=== PATIENT | female | born 1990 | race Two or more races ===

== ENCOUNTER 2022-12-20 16:39 | Emergency (ER) | payer MEDICAID, OTHER ==
[~2022-12-20] VITALS: Ht 154.9 cm; Wt 49.1 kg
[2022-12-20 19:16] VITALS: BP 106/77
[2022-12-20] MEDS ORDERED: GABA100C9 PO (20:28)
[2022-12-20] MEDS ORDERED: VALA1TAB PO (20:28)
== END 2022-12-20 20:56 | disposition home or self-care (01) ==
LOC: ER 16:39
DX: B02.9 Zoster without complications (principal)

== ENCOUNTER 2024-09-10 20:39 | Inpatient (IN) | payer MEDICAID, OTHER ==
[~2024-09-10] VITALS: Ht 154.9 cm; Wt 53.6 kg
[~2024-09-10 20:39] MED LIST: GABA-1308 PO; VALA1TAB PO
[2024-09-10 21:04] LABS: Basophils # (auto) 0 10 ^3/uL (0-0.2); Basophils % (auto) 0.3 % (0.0-2.0); Eosinophils # (auto) 0 10 ^3/uL (0-0.8); Eosinophils % (auto) 0.2 % (0.0-7.0); Hematocrit 40.1 % (36.0-46.0); Hemoglobin 13.5 g/dL (12.2-16.2); Lymphocytes # (auto) 1.2 10 ^3/uL (0.4-5.4); Mean Corpuscular Hemoglobin 29.2 pg (28.0-32.0); Mean Corpuscular Hgb Conc. 33.6 g/dL (32.0-36.0); Mean Corpuscular Volume 86.9 fL (80.0-100.0); Monocytes # (auto) 1.2 10 ^3/uL (0-1.3); Monocytes % (auto) 8.1 % (0.0-12.0); Neutrophils # (auto) 12.3 10 ^3/uL (1.6-8.6); Neutrophils % (auto) 83.4 % (37.0-80.0); Platelet Count (auto) 277 10^3/uL (140-450); Red Blood Cells 4.62 10^6/uL (4.0-5.20); Red Cell Distribution Width 13.7 % (11.8-14.3); White Blood Cell 14.7 10^3/uL (4.4-10.8)
[2024-09-10 21:21] LABS: Alanine Aminotransferase 289 U/L (7-40); Alkaline Phosphatase 111 U/L (46-116); Anion Gap 5 (5-15); Aspartate Aminotransferase 626 U/L (13-40); BUN/Creatinine Ratio 9.8 (10.0-20.0); Blood Urea Nitrogen 6 mg/dL (9-23); Calcium 10.4 mg/dL (8.7-10.4); Carbon Dioxide 27 mmol/L (20-31); Chloride 105 mmol/L (98-107); Glucose 118 mg/dL (74-106); Potassium 3.4 mmol/L (3.5-5.1); Sodium 137 mmol/L (136-145)
[2024-09-10 21:22] LABS: Albumin 5.3 g/dL (3.2-4.8); Bilirubin, Total 1.2 mg/dL (0.2-1.0); Total Protein 8.1 g/dL (5.7-8.2)
[2024-09-10 21:30] LABS: INR 1.06 (0.9-1.15); Partial Thromboplastin Time 25.6 SEC (24.5-34.5); Prothrombin Time 11.2 sec (9.3-11.8)
[2024-09-10 22:33] VITALS: PULSE 72; RESP 13; O2SAT 100
[2024-09-10] MEDS: MORPHINE SULFATE 4 MG/ML SYR/VIAL IV ONE (23:24)
[2024-09-10] MEDS: ONDANSETRON HCL 4 MG/2 ML VIAL IV ONE (23:26)
[2024-09-10] MEDS: cefTRIAXone 1GM/50ML D5W 50 ML IV ONE (23:27)
[2024-09-10] MEDS: SODIUM CHLORIDE 0.9% 1,000 ML IV ONE (23:27)
[2024-09-11 00:16] LABS: Urine Bacteria FEW /hpf (None Seen); Urine Blood TRACE /uL (Negative); Urine Clarity Clear (Clear); Urine Color Yellow (Yellow); Urine Protein, UAD Negative (Negative); Urine Specific Gravity 1.007 (1.001-1.035); Urine Urobilinogen 3 mg/dL (Negative); Urine WBC 4 /hpf (0 - 5); Urine pH 7.5 (5.0-9.0)
[2024-09-11] MEDS: metroNIDAZOLE 500MG/100ML 100 ML IV ONE (00:58)
[2024-09-11] MEDS ORDERED: ACETAMINOPHEN 325 MG TAB PO PRN (01:30)
[2024-09-11] MEDS ORDERED: MORPHINE SULFATE INJ 2 MG/ml SYRG IV PRN ×2 (01:30→05:15)
[2024-09-11 02:24] LABS: Triglycerides 89 mg/dL (< 150)
[2024-09-11 02:25] LABS: LDL Cholesterol 79 mg/dL (< 100)
[2024-09-11 02:26] LABS: Cholesterol 149 mg/dL (< 200); HDL Cholesterol 59 mg/dL (40-59)
[2024-09-11 02:43] LABS: Amphetamine Screen, Urine Neg (NEGATIVE); Barbiturate Scree,Urine Neg (NEGATIVE); Benzodiazephine Screen, Urine Neg (NEGATIVE); Cannabinoid Screen, Urine Pos (NEGATIVE); Cocaine Screen, Urine Neg (NEGATIVE); Opiate Scree,Urine Neg (NEGATIVE); Phencyclidine Screen, Urine Neg (NEGATIVE)
[2024-09-11] MEDS: SODIUM CHLORIDE 0.9% 1,000 ML IV SCH (02:59)
[2024-09-11] MEDS ORDERED: NITROGLYCERIN 0.4 MG SL TAB SL PRN (05:15)
[2024-09-11 07:09] LABS: Alanine Aminotransferase 323 U/L (7-40); Albumin 3.7 g/dL (3.2-4.8); Alkaline Phosphatase 91 U/L (46-116); Anion Gap 4 (5-15); Aspartate Aminotransferase 467 U/L (13-40); Calcium 8.2 mg/dL (8.7-10.4); Carbon Dioxide 23 mmol/L (20-31); Chloride 113 mmol/L (98-107); Glucose 84 mg/dL (74-106); Potassium 3.8 mmol/L (3.5-5.1); Sodium 140 mmol/L (136-145)
[2024-09-11 07:10] LABS: Bilirubin, Total 0.6 mg/dL (0.2-1.0); Total Protein 5.4 g/dL (5.7-8.2)
[2024-09-11 07:26] LABS: BUN/Creatinine Ratio 11.4 (10.0-20.0); Blood Urea Nitrogen < 5 mg/dL (9-23)
[2024-09-11 08:00] VITALS: PULSE 79; RESP 13; O2SAT 100
[2024-09-11] MEDS: ONDANSETRON HCL 4 MG/2 ML VIAL IV PRN (10:55)
[2024-09-11] MEDS: PANTOPRAZOLE 40 MG/10 ML VIAL INJ IV SCH (10:55)
[2024-09-11 11:08] VITALS: PULSE 88; RESP 15; O2SAT 100
[2024-09-11 11:12] VITALS: BP 114/72; PULSE 88; RESP 15; TEMP 97.6; O2SAT 100
[2024-09-11 20:00] VITALS: PULSE 72; PULSE 77; RESP 18; O2SAT 99
[2024-09-11 22:00] VITALS: BP 92/53; PULSE 72; RESP 18; TEMP 98.1; O2SAT 99
[2024-09-11] MEDS: HYDROcodone-ACET 5/325MG TAB PO PRN (22:19)
[2024-09-11] MEDS: cefTRIAXone 1GM/50ML D5W 50 ML IV SCH (23:12)
[2024-09-12] VITALS (9 sets, daily range): BP systolic 87–105; BP diastolic 45–60; PULSE 51–115; RESP 18–20; TEMP 97.8–98.9; O2SAT 94–99
[2024-09-12 05:39] LABS: Basophils # (auto) 0.1 10 ^3/uL (0-0.2); Basophils % (auto) 0.8 % (0.0-2.0); Eosinophils # (auto) 0.2 10 ^3/uL (0-0.8); Eosinophils % (auto) 2.7 % (0.0-7.0); Hematocrit 34.6 % (36.0-46.0); Hemoglobin 11.6 g/dL (12.2-16.2); Lymphocytes # (auto) 2.1 10 ^3/uL (0.4-5.4); Lymphocytes % (auto) 30.9 % (10.0-50.0); Mean Corpuscular Hemoglobin 29.2 pg (28.0-32.0); Mean Corpuscular Hgb Conc. 33.5 g/dL (32.0-36.0); Mean Corpuscular Volume 87.3 fL (80.0-100.0); Monocytes # (auto) 0.7 10 ^3/uL (0-1.3); Monocytes % (auto) 10.2 % (0.0-12.0); Neutrophils # (auto) 3.7 10 ^3/uL (1.6-8.6); Neutrophils % (auto) 55.4 % (37.0-80.0); Nucleated Red Blood Cells % 0.1 %; Platelet Count (auto) 223 10^3/uL (140-450); Red Blood Cells 3.96 10^6/uL (4.0-5.20); Red Cell Distribution Width 14.1 % (11.8-14.3); White Blood Cell 6.7 10^3/uL (4.4-10.8)
[2024-09-12 05:59] LABS: Alanine Aminotransferase 402 U/L (7-40); Alkaline Phosphatase 150 U/L (46-116); Anion Gap 7 (5-15); Aspartate Aminotransferase 443 U/L (13-40); Calcium 9.7 mg/dL (8.7-10.4); Carbon Dioxide 24 mmol/L (20-31); Chloride 109 mmol/L (98-107); Glucose 93 mg/dL (74-106); Potassium 4.3 mmol/L (3.5-5.1); Sodium 140 mmol/L (136-145)
[2024-09-12 06:00] LABS: Bilirubin, Total 0.8 mg/dL (0.2-1.0); Total Protein 6.4 g/dL (5.7-8.2)
[2024-09-12 06:19] LABS: BUN/Creatinine Ratio 8.2 (10.0-20.0); Blood Urea Nitrogen < 5 mg/dL (9-23)
[2024-09-12 12:08] LABS: Hepatitis B Surface Antigen Negative (Negative)
[2024-09-12 12:28] LABS: Hepatitis A Ab IgM Negative; Hepatitis B Core IgM Negative
[2024-09-12 12:29] LABS: Hepatitis C Antibody Negative (Negative)
[2024-09-12] MEDS: D5W/SOD CHLO 0.9% 1,000 ML IV SCH (18:59)
[2024-09-13] VITALS (8 sets, daily range): BP systolic 83–106; BP diastolic 43–68; PULSE 59–115; RESP 18–22; TEMP 97.9–99.1; O2SAT 97–100
[2024-09-13] MEDS ORDERED: LIDOCAINE 2% (LOCAL ANESTH.) PF 5ml SDV ONE (09:08)
[2024-09-13] MEDS ORDERED: MIDAZOLAM HCL 2MG/2ML 2ml VIAL (1mg/ml) ONE (09:08)
[2024-09-13] MEDS ORDERED: GLYCOPYRROLATE 0.2 MG/ML 1ML VIAL ONE (09:08)
[2024-09-13] MEDS ORDERED: DexAMETHasone SOD PHOS 10MG/1ML VIAL INJ ONE (09:08)
[2024-09-13] MEDS ORDERED: ONDANSETRON HCL 4 MG/2 ML VIAL ONE (09:08)
[2024-09-13] MEDS ORDERED: PROPOFOL 10 MG/ML 20 ML IV ONE (09:08)
[2024-09-13] MEDS ORDERED: ePHEDrine SULFATE 50 MG/ML AMP ONE (09:08)
[2024-09-13] MEDS ORDERED: HYDROmorphone HCL 2 MG/ML VL/or syr ONE (09:08)
[2024-09-13] MEDS ORDERED: KETOROLAC TROMETH 30 MG/ML 1ML VIAL ONE (09:08)
[2024-09-13] MEDS ORDERED: fentaNYL CITRATE 100 MCG/2 ML VL ONE (09:08)
[2024-09-13] MEDS: LIDOCAINE W/ EPINEPHRINE 1% 20ML VIAL ONE (09:14)
[2024-09-13] MEDS: BUPIVACAINE 0.25% INJ 50ML VIAL ONE (09:14)
[2024-09-13] MEDS: ceFAZolin 2 GM/D5W100ml 100 ML IV ONE (09:20)
[2024-09-13] MEDS ORDERED: SUGAMMADEX 200mg/2ml Vial (100MG/ML) IV ONE (09:45)
[2024-09-13] MEDS ORDERED: MEPERIDINE HCL (25 MG/ML) 1ML VIAL ONE (09:55)
[2024-09-13] MEDS: ONDANSETRON HCL 4 MG/2 ML VIAL IV ONE (10:45)
[2024-09-13] MEDS ORDERED: HYDROmorphone HCL 2 MG/ML VL/or syr IV PRN (10:45)
[2024-09-13] MEDS: metroNIDAZOLE 500MG/100ML 100 ML IV SCH (14:31)
[2024-09-13] MEDS ORDERED: METOCLOPRAMIDE HCL 5MG/ml INJ 2ml VIAL IV ONE (23:15)
[2024-09-14] VITALS (7 sets, daily range): BP systolic 91–106; BP diastolic 54–77; PULSE 60–98; RESP 15–22; TEMP 97.4–98.6; O2SAT 97–100
[2024-09-14 05:51] LABS: Basophils # (auto) 0 10 ^3/uL (0-0.2); Basophils % (auto) 0.3 % (0.0-2.0); Eosinophils # (auto) 0 10 ^3/uL (0-0.8); Eosinophils % (auto) 0.1 % (0.0-7.0); Hemoglobin 10.9 g/dL (12.2-16.2); Lymphocytes # (auto) 1.5 10 ^3/uL (0.4-5.4); Lymphocytes % (auto) 10.5 % (10.0-50.0); Mean Corpuscular Volume 88.1 fL (80.0-100.0); Monocytes # (auto) 1.4 10 ^3/uL (0-1.3); Monocytes % (auto) 9.6 % (0.0-12.0); Neutrophils # (auto) 11.4 10 ^3/uL (1.6-8.6); Neutrophils % (auto) 79.5 % (37.0-80.0); Platelet Count (auto) 217 10^3/uL (140-450); Red Blood Cells 3.75 10^6/uL (4.0-5.20); Red Cell Distribution Width 14.2 % (11.8-14.3); White Blood Cell 14.3 10^3/uL (4.4-10.8)
[2024-09-14 06:06] LABS: Alanine Aminotransferase 207 U/L (7-40); Alkaline Phosphatase 121 U/L (46-116); Anion Gap 8 (5-15); Aspartate Aminotransferase 49 U/L (13-40); Calcium 9.7 mg/dL (8.7-10.4); Carbon Dioxide 23 mmol/L (20-31); Chloride 110 mmol/L (98-107); Glucose 119 mg/dL (74-106); Potassium 3.3 mmol/L (3.5-5.1); Sodium 141 mmol/L (136-145)
[2024-09-14 06:07] LABS: Bilirubin, Total 0.4 mg/dL (0.2-1.0); Total Protein 6.1 g/dL (5.7-8.2)
[2024-09-14 06:30] LABS: BUN/Creatinine Ratio 9.4 (10.0-20.0); Blood Urea Nitrogen < 5 mg/dL (9-23)
[2024-09-14] MEDS ORDERED: HYDR-4902 PO (16:58)
[2024-09-14] MEDS ORDERED: NALO4SPR2 (16:58)
[2024-09-14] MEDS ORDERED: AUG875T PO (16:58)
[2024-09-14] MEDS ORDERED: ROCURONIUM 10MG/ML 10ML VIAL IV ONE (20:33)
== END 2024-09-14 20:34 | disposition home or self-care (01) | DRG 263 ==
LOC: ER 20:39 → TELE 09-11 05:11 → ER 09-11 05:11 → TELE-WESTW 09-11 10:43
PROVIDERS: ADMIT Nurse Practitioner Family; ATTEND Internal Medicine
PROC: 0FT44ZZ Resection of Gallbladder, Percutaneous Endoscopic Approach (ICD-10-PCS; principal; 2024-09-13 09:14)
DX: K80.00 Calculus of gallbladder with acute cholecystitis without obstruction (principal); F17.200 Nicotine dependence, unspecified, uncomplicated; K59.00 Constipation, unspecified; R74.01 Elevation of levels of liver transaminase levels; Z79.899 Other long term (current) drug therapy; Z86.19 Personal history of other infectious and parasitic diseases
CPT/HCPCS: 36415; 71045; 74176; 76705; 80053; 80061; 80074; 80307; 81001; 81025; 82150; 82728; 83605; 83690; 83735; 83880; 84484; 85025; 85379; 85610; 85730; 86038; 86850; 86900; 86901; 87040; 93005; 93306; 96365; 96367; 96375; G0378; J1100; J1885; J2003; J2250; J2405; J2470; J2704; J3490